=== PATIENT | female | born 1940 | race Caucasian/White ===

== ENCOUNTER → 2017-01-19 | Outpatient (CLI) | payer OTHER | LOC: CIMAGING 16:47 | PROVIDERS: ATTEND Family Medicine | DX: M54.9 Dorsalgia, unspecified (principal); R10.10 Upper abdominal pain, unspecified | CPT/HCPCS: 71100-PO; 74000-PO ==

== ENCOUNTER 2017-12-31 15:33 | Emergency (ER) | payer OTHER ==
[2017-12-31] MEDS ORDERED: ACETAMINOPHEN 325 MG TAB PO ONE (16:08)
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
[2017-12-31] MEDS ORDERED: FAMOTIDINE 20 MG/2 ML SDV IVP ONE (16:36)
[2017-12-31 16:51] VITALS: BP 137/89
== END 2017-12-31 16:40 | disposition home or self-care (01) ==
LOC: CED 15:33
DX: S39.012A Strain of muscle, fascia and tendon of lower back, initial encounter (principal); V49.40XA Driver injured in collision with unspecified motor vehicles in traffic accident, initial encounter; Y92.410 Unspecified street and highway as the place of occurrence of the external cause; Y99.0 Civilian activity done for income or pay; Y93.89 Activity, other specified
CPT/HCPCS: 81003-PO